=== PATIENT | male | born 1990 ===

== ENCOUNTER → 2021-06-23 | Outpatient (REF) | payer OTHER | LOC: M WUC 12:51 | PROVIDERS: ATTEND Physician Assistant | DX: J02.9 Acute pharyngitis, unspecified (principal) ==

== ENCOUNTER → 2022-10-06 | Outpatient (CLI) | payer OTHER | LOC: M WUC 08:38 | PROVIDERS: ATTEND Physician Assistant | DX: S90.112A Contusion of left great toe without damage to nail, initial encounter (principal); X58.XXXA Exposure to other specified factors, initial encounter; Y99.9 Unspecified external cause status; Y92.9 Unspecified place or not applicable ==